=== PATIENT | male | born 1980 | race African-American/Black ===

== ENCOUNTER 2016-04-13 17:08 | Emergency (ER) | payer OTHER ==
--- NOTE | ~2016-04-13 | CT71 ---
[facility] A Service [facility] RADIOLOGY TEXT RESULTS PATIENT: LITA FERRARO LOCATION: SED : 80 UNIT #: [id number] AGE: [address]: Hong King PAC SEX: M ORDER DR: [id number] [place] [id number] E MR#: [id number] Acc #: [id number] NAME: LITA FERRARO : 1980 SEX: M STUDY DATE/TIME: 04/13/2016 17:40 UNIT: SED ROOM: STUDY DESCRIPTION: CT Head Wo Contrast Attending Physician: Hong King P.A.-C. Ordering Physician: Hong King P.A.-C. MEDICAL IMAGING REPORT This report is preliminary unless electronic signature is present. EXAM CT head 04/13/2016 HISTORY Seizure lasted 10 minutes witnessed prior to arrival. History of smoking, ulcers, seizures. TECHNIQUE This CT examination was performed with one or more of the following radiation dose reduction techniques: automatic exposure control, adjustment of mA and/or kV according to patient size, and iterative reconstruction. FINDINGS CT head performed skull base through vertex without intravenous contrast. Comparison 08/13/2012. Brainstem unremarkable. Cerebellum and cerebral hemispheres show normal renteria matter-white matter differentiation. No hemorrhage. NO evidence of acute cortical ischemia. Midline structures nondisplaced. Basal ganglia intact. No intra- or extraaxial mass effect or abnormal intracranial fluid collection. Visualized intraorbital soft tissues unremarkable. Visualized paranasal sinuses and mastoid air cells are clear. No fracture. IMPRESSION Normal CT of the head. If patient has ongoing neurologic symptoms, consider follow up imaging, preferably with MRI if patient is candidate. Dictated by... Hong Langford M.D. [facility] A Service of [facility] RADIOLOGY TEXT RESULTS PATIENT: LITA FERRARO LOCATION: SED : 80 UNIT #: [id number] AGE: [address]: Hong King PAC SEX: M ORDER DR: THIS IS AN ELECTRONICALLY VERIFIED REPORT Hong Langford M.D. at 04/15/2016 5:27 PM GERARDO/yovany TD: 04/14/2016 08:04 JOB #: [id number] MEDICAL IMAGING REPORT
[~2016-04-13 17:08] MED LIST: AMOXICILLIN PO; AVELOX400 M1 PO; BENTYL20 MG PO; DOXYCYCLINE150 MG PO; FLAGYL PO; FLEXERIL PO; FLEXERIL10 M1 PO; KEPPRA500 MG PO; LORTAB 5/500 TA1 TA1 PO; LORTAB 7.5-5001 TAB PO; LORTAB 7.51 TAB 7.5/; MAGIC MOUTHWASH PO; METHADONE HCL10 MG PO; METHADONE PO; MORGIDOX100 MG PO; NO MEDICATIONS; OMEPRAZOLE20 M2 PO; OMEPRAZOLE40 MG PO; PHENERGAN PO; PREDNISONE PO; TRAMADOL HCL50 M1 PO; ULTRAM PO; VOLTAREN75 MG PO; ZOFRAN PO
[2016-04-13 18:50] LABS: BASOPHIL# 0.1 X10e3 (0-0.3); HEMATOCRIT 42.6 % (38.0-50.0); LYMPHOCYTE# 1.2 X10e3 (1.0-3.5); RED CELL DISTRIBUTION WIDTH 15.9 % (11.0-15.5); WHITE BLOOD COUNT 11.5 X10e3 (4.0-10.5)
[2016-04-13 18:52] LABS: BASOPHIL% 0.7 % (0-2.5); EOSINOPHIL# 0.3 X10e3 (0-0.7); EOSINOPHIL% 2.9 % (0.0-7.0); HEMOGLOBIN 14.2 gm/dL (13.0-16.0); LYMPHOCYTE% 10.4 % (17.0-45.0); MEAN CELL VOLUME 73.8 FL (83-96); MEAN CORPUSCULAR HEMOGLOBIN 24.7 PG (28-34); MEAN CORPUSCULAR HGB CONC 33.4 g/dL (30-36); MEAN PLATELET VOLUME 11.5 FL (6.5-11.5); MONOCYTE# 0.8 X10e3 (0-1.0); MONOCYTE% 6.5 % (3.0-12.0); NEUTROPHIL# 9.2 X10e3 (1.5-7.1); NEUTROPHIL% 79.5 % (40-75); RED BLOOD COUNT 5.77 X10e (3.90-5.60)
[2016-04-13 19:08] LABS: PLATELET COUNT 19 X10e3 (140-420)
[2016-04-13 19:09] LABS: DIFF IND YES
[2016-04-13 19:12] LABS: ANISOCYTOSIS SL; PLATELET ESTIMATE DECREASED (NORMAL)
[2016-04-13 19:22] LABS: ALBUMIN SERUM 4.4 g/dL (3.5-5.0); ALCOHOL BLOOD <5 mg/dL (0); ALKALINE PHOSPHATASE 68 U/L (32-92); ALT (SGPT) 23 U/L (10-40); AST (SGOT) 22 U/L (10-42); BILIRUBIN, DIRECT 0.1 mg/dL (0.0-0.2); BILIRUBIN,INDIRECT 0.7 mg/dL (0.0-0.9); BILIRUBIN,TOTAL 0.8 mg/dL (0.2-2.0); BLOOD UREA NITROGEN 14 mg/dL (9-23); BUN/CREATININE RATIO 10.76; CALCIUM SERUM 9.1 mg/dL (8.4-10.2); CARBON DIOXIDE 31 mmol/L (22-31); CHLORIDE 103 mmol/L (100-111); CREATININE SERUM 1.3 mg/dL (0.6-1.4); GLOM FILT RATE Estimated ABOVE60 mL/min (>60); GLUCOSE FASTING 104 mg/dL (70-110); POTASSIUM 4.7 mmol/L (3.5-5.1); PROTEIN TOTAL SERUM 7.5 g/dL (6.0-8.3); SODIUM 138 mmol/L (135-145)
[2016-04-13 20:14] LABS: URINE SOURCE CLEAN CATCH
[2016-04-13 20:17] LABS: URINE APPEARANCE CLEAR; URINE BILIRUBIN NEG (NEG); URINE BLOOD NEG (NEG); URINE COLOR YELLOW; URINE GLUCOSE NEG (NORM); URINE KETONE NEG (NEG); URINE LEUKOCYTE ESTERASE NEG (NEG); URINE NITRATE NEG (NEG); URINE PROTEIN NEG (NEG); URINE UROBILINOGEN 0.2 MG/DL (NORM)
[2016-04-13 20:20] LABS: MICRO INDICATED? NO
[2016-04-13 20:29] LABS: AMPHETAMINE NEG (NEG); BARBITURATES NEG (NEG); BENZODIAZEPINES POS (NEG); COCAINE NEG (NEG); MARIJUANA NEG (NEG); OPIATES NEG (NEG); TRICYCLIC ANTIDEPRESSANTS NEG (NEG); U METHADONE POS (NEG)
== END 2016-04-13 20:44 | disposition home or self-care (01) ==
LOC: SED 17:08
PROVIDERS: Physician Assistant
DX: G40.909 Epilepsy, unspecified, not intractable, without status epilepticus (principal); F17.210 Nicotine dependence, cigarettes, uncomplicated
CPT/HCPCS: 36415; 70450; 80048; 80076; 80307; 81003; 85025; 96365; 99284; G0480; J1953